=== PATIENT | female | born 1980 | race Caucasian/White ===

== ENCOUNTER → 2016-03-23 | Outpatient (CLI) | payer OTHER ==
--- NOTE | 2016-03-23 14:51 | US ---
March 23, [address] Molina, Thank you for allowing me to see your patient, Mrs. Lobo aneuploidy screening and cons ult. As you know she is a , 35 year old G 1, P 0 . Her due date is 10/01/16 by LMP of 12/26/15. B ased on this dating her current gestational age is 12 weeks 4 day(s) . She had a detailed preconcepti on consultation with Dr. Up as her sister as an infant from osteogenesis imperfecta. This consult was performed on 10/01/15. She had reassuring NIPT in this . ULTRASOUND LMP: 12/26/15 Gestational age by LMP: 12 weeks 4 days BALDEV by LMP: 10/01/16 CRL: 65 mm Gestational Age by CRL: 12 weeks 5 days BALDEV by CRL: 09/30/16 Consistent with established dating (LMP or ultrasound): Yes Nuchal Translucency: 1.6 mm Nasal Bone: Present Heart Rate: 149 bpm Placenta: Posterior Right Ovary: Is visualized and appears normal. It measures 3.3 x 2.2 x 2.5 cm. Left Ovary: Is visualized with a corpus luteum cyst. The ovary measures 2.2 x 1.9 x 2.8 cm. No overt structural anomalies were identified for this early ultrasound. The choroids, upper extremit ies and lower extremities were visualized and appear normal for this gestational age. Please note the full anatomic evaluation has not occurred for this early gestational age. Impression: 1. Intrauterine at 12 w, 4 d, BALDEV of 10/01/16. 2. Nuchal translucency measurement today is 1.6 mm, which is reassuring. 3. Advanced maternal age; reassuring NIPT 4. Family history of Osteogenesis Imperfecta in her sister who as an infant. Recommendations: 1. Maternal serum AFP is recommended between 15-20 weeks to screen for the risk of open neural tube defects. 2. Desires early ultrasound evaluation between 16-17 weeks for bony abnormalities. 3. Recommend a detailed obstetrical ultrasound at 20 weeks to evaluate anatomy. 4. Reviewed aneuploidy screening versus definitive genetic diagnosis today with relation to age and genetic risk. She is aware that without knowledge of her sister's mutation testing for OI would not occur. After our consultation, Farrah declined invasive testing. Thank you for allowing us the opportunity to evaluate your patient. Should you have any further ques tions or concerns please do not hesitate to contact me. Approximately 15 minutes were spent with the patient and 10 minutes were spent in face to face consu ltation. Heide Haywood MD [employer] Maternal Medicine Department of Obstetrics & Gynecology [facility]
--- NOTE | 2016-03-23 15:14 | US ---
Obstetrical Sonogram History: 35-year-old with estimated gestational age of 12 weeks 4 days and EDC of October 01, 2016. Comparison: None available. Findings: There is a single living intrauterine with a heart rate of 149 beats per minute. Average crown-rump length is 6.5 cm, for estimated gestational age of 12 weeks 5 days. Nuchal trans lucency is 1.6 mm. The nasal bone is visible. The amniotic fluid volume is subjectively normal. No overt anatomic abnormality is identified, although assessment is limited by early gestational age. The placenta is posterior. The ovaries are normal. Impression: 1. Single living intrauterine gestation with size consistent with dates. 2. Normal nuchal translucency. 3. Detailed anatomic survey is recommended at 19-20 weeks. Please see separate dictation for consultation performed by Heide Haywood MD, the same day.
== END ==
LOC: FIMAGING 13:27
PROVIDERS: ATTEND Obstetrics & Gynecology
DX: O09.511 Supervision of elderly primigravida, first trimester (principal); Z3A.12 12 weeks gestation of pregnancy

== ENCOUNTER → 2016-05-07 | Outpatient (CLI) | payer OTHER | LOC: FIMAGING 07:52 | PROVIDERS: ATTEND Obstetrics & Gynecology | DX: O09.512 Supervision of elderly primigravida, second trimester (principal); Z3A.19 19 weeks gestation of pregnancy; Z82.79 Family history of other congenital malformations, deformations and chromosomal abnormalities ==

== ENCOUNTER 2016-09-27 20:54 | Observation (INO) | payer OTHER ==
--- NOTE | 2016-09-27 23:18 | SOAPPROG ---
SOAP Progress Note Assessment/Plan: Assessment: G1 at 39w3d LOF earlier today--none now and neg amnisure, no e/o ROM No ctx SVE 1 cm per RN Tracing reviewed: kept on longer to determine baseline. Prolonged tracing demonstrates baseline of 130-140 bpm with multiple prolonged accels to 150s- 160s. Baby states baby is very active. No contractions. Reassuring status. Plan: Reviewed plan of care with patient via phone--return for any further leaking, labor, dec fm, other concerns. Otherwise follow-up this week in office as scheduled. 09/27/16 23:15 ICD10 Worksheet Patient Problems: Problems Problem Status Onset 39 weeks gestation of Acute - ICD10 Problem Qualifiers (1) 39 weeks gestation of
== END 2016-09-27 22:32 | disposition home or self-care (01) ==
LOC: FLD 20:54
PROVIDERS: ADMIT Obstetrics & Gynecology; ATTEND Obstetrics & Gynecology
DX: Z03.79 Encounter for other suspected maternal and fetal conditions ruled out (principal); O09.523 Supervision of elderly multigravida, third trimester; Z3A.39 39 weeks gestation of pregnancy
CPT/HCPCS: G0378 ×2

== ENCOUNTER 2017-11-06 09:27 | Emergency (ER) | payer BC, OTHER ==
[2017-11-06] MEDS ORDERED: NS 1,000 ML IV ONE ×2 (09:50→10:27)
--- NOTE | 2017-11-06 09:50 | EDPHY ---
General Time Seen by Provider: 11/06/17 09:40 Narrative: CHIEF COMPLAINT: Abdominal pain HISTORY OF PRESENT ILLNESS: Patient presents with complaints of abdominal pain. Abdominal pain started on Wednesday and was generalized at that time. It has since significantly increased in severity, become constant and has now localized to the left side of the abdomen left upper quadrant pain worse with palpation, movement and walking. Somewhat better with direct pressure. Associated with nausea starting this morning. No vomiting. No chest pain. No shortness of breath or cough. She does report some diaphoresis and chills. She had 1 loose stool on . She has had no bloody stools. No constipation. No trauma or injury. No abdominal pathology or surgeries. No other associated complaints or modifying factors REVIEW OF SYSTEMS: 10 systems were reviewed and negative with the exception of the elements mentioned in the history of present illness. PCP: Dr. Arce SPECIALISTS: None PAST MEDICAL HISTORY: ACL injury, nasal fracture, infectious mononucleosis as a child, herpes simplex type 2 LMP: 10 days ago PAST SURGICAL HISTORY: Rhinoplasty, ACL repair remotely SOCIAL HISTORY: Nonsmoker. Occasional alcohol. Lives here independently with her spouse and 1- year-old child. 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 Well appearing. Nontoxic. Head: normocephalic, atraumatic. Eyes: Pupils equal and round, no conjunctival pallor or injection ENT, Mouth: Mucous membranes slightly dry. Airway patent. Neck: Normal inspection, supple, non-tender Respiratory: Lungs are clear to auscultation Cardiovascular: Regular rate and rhythm. No murmur. Gastrointestinal: Abdomen is soft and nondistended. There is tenderness in the left side of the abdomen with guarding the left upper quadrant. There may be mild splenomegaly. No tympany. No rigidity. No CVA tenderness. There is guarding on the left upper quadrant. Bowel sounds are appreciated in all 4 quadrants. Back: non-tender, no bony abnormalities Neurological: A&O, nonfocal, normal gait Skin: Warm and dry, no rash Extremities: Nontender, no pedal edema Psychiatric: Mood and affect normal DIFFERENTIAL DIAGNOSES: Including but not limited to splenomegaly, hepatomegaly, the mesenteric adenitis , colitis, diverticulitis, pancreatitis, appendicitis, gastritis MDM: 9:40 a.m. Left-sided abdominal pain of 3 days duration. She does have guarding of the left upper quadrant left side the abdomen. Bowel sounds are appreciated. She is mildly tachycardic, but she does not meet SIRS criteria. I have ordered CT scan abdomen pelvis because the guarding IV is ordered in place. She is declining pain medication at this time. Remainder of laboratory studies are Pending including HCG. 10:00 a.m. Laboratory studies reveal no leukocytosis. Chemistries unremarkable. HCG negative. 10:45 a.m. Notified by radiologist head CT scan reveals uncomplicated descending colon diverticulitis. No perforation or abscess. No other abnormalities noted. 11:15 a.m. Patient re-evaluated. I discussed the CT scan findings, negative laboratory studies. We discussed antibiotic medication for treatment of this but I do feel she is candidate for outpatient therapy as she has minimal pain, she is afebrile and vital signs are within normal limits. We discussed antibiotic treatment, rest, hydration and pain medication. We discussed strict ED precautions for any fever, increasing pain, intolerance of intake by mouth. We discussed follow up with primary care physician to discuss the GI and possible general surgery referral as needed. I have answered all her questions and the questions of her spouse at bedside. She is comfortable this plan. Discharged home stable condition SUPERVISION: Patient was independently examined, but I discussed the case with my secondary supervising physician Dr. Preciado CONSULTATION: - Diagnostics Imaging Results: Imaging Impressions Abdomen CT 11/06/17 09:50 Impression: 1. Diverticulitis of the descending colon. No abscess or bowel perforation. 2. Right nephrolithiasis. No hydronephrosis. Findings discussed with Emergency Department physician under water assistant, Aneudy Martinez, on 11/06/2017 at 10:57 a.m. - History Smoking Status: Never smoked - Objective Vital Signs: Initial Vital Signs Temperature (C) 98.2 F 11/06/17 09:29 Heart Rate 105 H 11/06/17 09:29 Respiratory Rate 18 11/06/17 09:29 Blood Pressure 117/90 H 11/06/17 09:29 O2 Sat (%) 98 11/06/17 09:29 O2 Delivery Mode Room Air Allergies/Adverse Reactions: amoxicillin Allergy (Verified 11/06/17 09:29) Home Medications: Medication Instructions Recorded valACYclovir [Valtrex (*)] 1 tab PO DAILY 07/31/17 Ciprofloxacin [Cipro] 500 mg PO BID #14 tab 11/06/17 Metronidazole 500 mg PO TID #42 tablet 11/06/17 Ondansetron Odt [Zofran Odt 4 mg 4 mg PO Q6 PRN #12 tab 11/06/17 (*)] oxyCODONE HCL/ACETAMINOPHEN 1 each PO Q4-6PRN PRN #15 tablet 11/06/17 [Percocet 5-325 mg Tablet] Laboratory Results: Laboratory Results 11/06/17 09:45 11/06/17 11/06/17 11/06/17 10:05 09:47 09:45 WBC RBC Hgb POC Hgb 17.0 gm/dL H gm/dL (12.6-16.3) Hct POC Hct 50 % H % (38-47) MCV MCH MCHC RDW Plt Count MPV Neut % (Auto) Lymph % (Auto) [place] % (Auto) Eos % (Auto) Baso % (Auto) Nucleat RBC Rel Count Absolute Neuts (auto) Absolute Lymphs (auto) Absolute Monos (auto) Absolute Eos (auto) Absolute Basos (auto) Absolute Nucleated RBC Immature Gran % Immature Gran # POC Sodium 139 mEq/L mEq/L (135-145) POC Potassium 3.6 mEq/L mEq/L (3.3-5.0) POC Chloride 103 mEq/L mEq/L (97-110) POC BUN 7 mg/dL mg/dL (7-23) POC Creatinine 0.8 mg/dL mg/dL (0.6-1.0) POC Glucose 105 mg/dL H mg/dL (70-100) Total Bilirubin Conjugated Bilirubin Unconjugated Bilirubin AST ALT Alkaline Phosphatase Total Protein Albumin Lipase Beta HCG, Qual NEGATIVE Urine Color PALE YELLOW Urine Appearance HAZY Urine pH 6.0 (5.0-7.5) Ur Specific [place] 1.005 (1.002-1.030) Urine Protein NEGATIVE (NEGATIVE) Urine Ketones NEGATIVE (NEGATIVE) Urine Blood 1+ H (NEGATIVE) Urine Nitrate NEGATIVE (NEGATIVE) Urine Bilirubin NEGATIVE (NEGATIVE) Urine Urobilinogen NEGATIVE EU EU (0.2-1.0) Ur Leukocyte Esterase NEGATIVE (NEGATIVE) Urine RBC NONE SEEN /hpf /hpf (0-3) Urine WBC 1-3 /hpf /hpf (0-3) Ur Epithelial Cells TRACE /lpf /lpf (NONE-1+) Urine Bacteria TRACE /hpf H /hpf (NONE SEEN) Urine Glucose NEGATIVE (NEGATIVE) 11/06/17 11/06/17 09:45 09:45 WBC 8.87 10^3/uL 10^3/uL (3.80-9.50) RBC 4.84 10^6/uL 10^6/uL (4.18-5.33) Hgb 15.8 g/dL g/dL (12.6-16.3) POC Hgb Hct 46.2 % % (38.0-47.0) POC Hct MCV 95.5 fL fL (81.5-99.8) MCH 32.6 pg pg (27.9-34.1) MCHC 34.2 g/dL g/dL (32.4-36.7) RDW 12.2 % % (11.5-15.2) Plt Count 283 10^3/uL 10^3/uL (150-400) MPV 10.2 fL fL (8.7-11.7) Neut % (Auto) 73.2 % % (39.3-74.2) Lymph % (Auto) 16.8 % % (15.0-45.0) [place] % (Auto) 7.7 % % (4.5-13.0) Eos % (Auto) 1.5 % % (0.6-7.6) Baso % (Auto) 0.6 % % (0.3-1.7) Nucleat RBC Rel Count 0.0 % % (0.0-0.2) Absolute Neuts (auto) 6.50 10^3/uL 10^3/uL (1.70-6.50) Absolute Lymphs (auto) 1.49 10^3/uL 10^3/uL (1.00-3.00) Absolute Monos (auto) 0.68 10^3/uL 10^3/uL (0.30-0.80) Absolute Eos (auto) 0.13 10^3/uL 10^3/uL (0.03-0.40) Absolute Basos (auto) 0.05 10^3/uL 10^3/uL (0.02-0.10) Absolute Nucleated RBC 0.00 10^3/uL 10^3/uL (0-0.01) Immature Gran % 0.2 % % (0.0-1.1) Immature Gran # 0.02 10^3/uL 10^3/uL (0.00-0.10) POC Sodium POC Potassium POC Chloride POC BUN POC Creatinine POC Glucose Total Bilirubin 0.7 mg/dL mg/dL (0.1-1.4) Conjugated Bilirubin 0.2 mg/dL mg/dL (0.0-0.5) Unconjugated Bilirubin 0.5 mg/dL mg/dL (0.0-1.1) AST 18 IU/L IU/L (14-46) ALT 16 IU/L IU/L (9-52) Alkaline Phosphatase 63 IU/L IU/L (38-126) Total Protein 7.6 g/dL g/dL (6.3-8.2) Albumin 4.4 g/dL g/dL (3.5-5.0) Lipase 119 IU/L IU/L (23-300) Beta HCG, Qual Urine Color Urine Appearance Urine pH Ur Specific [place] Urine Protein Urine Ketones Urine Blood Urine Nitrate Urine Bilirubin Urine Urobilinogen Ur Leukocyte Esterase Urine RBC Urine WBC Ur Epithelial Cells Urine Bacteria Urine Glucose Medications Given: Discontinued Medications Sodium Chloride (Ns) 1,000 mls @ 0 mls/hr IV EDNOW ONE; Wide Open PRN Reason: Protocol Stop: 11/06/17 09:51 Last Admin: 11/06/17 09:50 Dose: 1,000 mls Sodium Chloride (Ns) 1,000 mls @ 0 mls/hr IV EDNOW ONE; Wide Open PRN Reason: Protocol Stop: 11/06/17 10:28 Last Admin: 11/06/17 10:48 Dose: 1,000 mls Point of Care Test Results: Chemistry 11/06/17 09:47 POC Sodium 139 mEq/L mEq/L (135-145) POC Potassium 3.6 mEq/L mEq/L (3.3-5.0) POC Chloride 103 mEq/L mEq/L (97-110) POC BUN 7 mg/dL mg/dL (7-23) POC Creatinine 0.8 mg/dL mg/dL (0.6-1.0) POC Glucose 105 mg/dL H mg/dL (70-100) ISTAT H&H 11/06/17 09:47 POC Hgb 17.0 gm/dL H gm/dL (12.6-16.3) POC Hct 50 % H % (38-47) Departure - Departure Disposition: Home, Routine, Self-Care Clinical Impression: Acute diverticulitis Condition: Good Instructions: Ciprofloxacin (By mouth), Oxycodone/Acetaminophen (By mouth), Metronidazole (By mouth), Diverticulitis (ED), Diverticulitis Diet (ED) Additional Instructions: 1. Clear liquid diet, advance slowly as tolerated 2. Antibiotics as prescribed to completion 3. Pain medication as prescribed as needed 4. Nausea medication as prescribed as needed 5. Contact primary care physician Wednesday morning to be seen on Wednesday or Wednesday without fail 6. Return to emergency department for increasing pain, fever, nausea, vomiting, intolerance of pain, back pain Referrals: Natali Syed MD [Primary Care Provider] - As per Instructions Prescriptions: Ciprofloxacin [Cipro] 500 mg PO BID #14 tab Metronidazole 500 mg PO TID #42 tablet Ondansetron Odt [Zofran Odt 4 mg (*)] 4 mg PO Q6 PRN #12 tab PRN Reason: Nausea/Vomiting, Use 1st oxyCODONE HCL/ACETAMINOPHEN [Percocet 5-325 mg Tablet] 1 each PO Q4-6PRN PRN # 15 tablet PRN Reason: Pain, Breakthrough
[2017-11-06 09:59] LABS: PLATELET COUNT 283 10^3/uL (150-400)
[2017-11-06] MEDS ORDERED: IOPAMIDOL (ISOVUE-300) 100 ML BTL ONE (10:04)
[2017-11-06 11:46] VITALS: BP 117/82
== END 2017-11-06 11:45 | disposition home or self-care (01) ==
DX: K57.32 Diverticulitis of large intestine without perforation or abscess without bleeding (principal)
CPT/HCPCS: 82435-PO; 82565-PO; 82947-PO; 84132-PO; 84295-PO; 84520-PO; 85014-PO; Q9967